=== PATIENT | female | born 1940 | race Caucasian/White ===

== ENCOUNTER → 2017-08-10 | Outpatient (CLI) | payer MEDICARE, OTHER ==
[~2017-08-10] MED LIST: ATOR10; Advil200 M1; CENTRUM SILVER1 EAC2; CHOL10002 PO; Coq-1030 MG PO; DOCU100 PO; OXYACE5T PO; PROM25 PO; Percocet 5-3251 EACH PO; RALO60 PO
[2017-08-11 10:50] LABS: Candida species (DNA Probe) Negative (NEGATIVE); G. vaginalis (DNA Probe) Negative (NEGATIVE); T. vaginalis (DNA Probe) Negative (NEGATIVE)
== END | disposition home or self-care (01) ==
LOC: LAB 11:53
PROVIDERS: Physician Assistant
DX: N89.8 Other specified noninflammatory disorders of vagina (principal)
CPT/HCPCS: 87480; 87510; 87660

== ENCOUNTER → 2017-09-15 | Outpatient (CLI) | payer MEDICARE, OTHER ==
[2017-09-15 13:57] LABS: Source, Urine Catheter
[2017-09-15 16:21] LABS: Appearance, Urine Clear (Clear); Bilirubin, Urine Neg (Neg); Blood, Urine Neg (Neg); Color, Urine Yellow (P-Yellow); Glucose Qualitative, Urine Neg (Neg); Ketones, Urine Neg (Neg); Leukocyte Esterase, Urine Neg (Neg); Nitrite, Urine Neg (Neg); Protein, Urine Neg (Neg); Specific Gravity, Urine 1.025 (1.003-1.022); Urobilinogen, Urine NORM (Normal)
== END | disposition home or self-care (01) ==
LOC: OLS 13:49
PROVIDERS: Obstetrics & Gynecology Gynecology
DX: N89.8 Other specified noninflammatory disorders of vagina (principal); R31.21 Asymptomatic microscopic hematuria; Z87.448 Personal history of other diseases of urinary system
CPT/HCPCS: 81003; 87070; 87205

== ENCOUNTER → 2018-11-07 | Outpatient (CLI) | payer MEDICARE, OTHER ==
[2018-11-07 12:08] LABS: Source, Urine Catheter
[2018-11-07 12:44] LABS: Bilirubin, Urine Neg (Neg); Blood, Urine Neg (Neg); Glucose Qualitative, Urine Neg (Neg); Ketones, Urine Neg (Neg); Leukocyte Esterase, Urine Neg (Neg); Nitrite, Urine Neg (Neg); Protein, Urine Neg (Neg); Urobilinogen, Urine NORM (Normal)
[2018-11-07 12:48] LABS: Appearance, Urine Clear (Clear); Color, Urine Pale Yellow (P-Yellow)
== END | disposition home or self-care (01) ==
LOC: LAB 12:07 → LAB SHORT 12:07
PROVIDERS: Nurse Practitioner Women's Health
DX: R30.0 Dysuria (principal)
CPT/HCPCS: 81003

== ENCOUNTER → 2019-04-12 | Outpatient (CLI) | payer MEDICARE, OTHER ==
[2019-04-14 15:07] LABS: HPV 16 Negative (Negative); HPV 18 Negative (Negative); HPV OTHER HR TYPES Negative (Negative)
== END | disposition home or self-care (01) ==
LOC: LAB SHORT 13:47 → LAB 13:47
PROVIDERS: Obstetrics & Gynecology Gynecology
DX: Z91.89 Other specified personal risk factors, not elsewhere classified (principal)
CPT/HCPCS: 87624; G0123

== ENCOUNTER → 2019-11-11 | Outpatient (CLI) | payer MEDICARE, OTHER | END | disposition home or self-care (01) | LOC: LAB SHORT 08:17 → LAB 08:17 | DX: N39.0 Urinary tract infection, site not specified (principal) | CPT/HCPCS: 87086 ==

== ENCOUNTER → 2020-04-28 | Outpatient (CLI) | payer MEDICARE, OTHER | END | disposition home or self-care (01) | LOC: LAB 10:00 → LAB SHORT 10:00 | DX: R30.0 Dysuria (principal) | CPT/HCPCS: 87086 ==

== ENCOUNTER → 2020-11-21 | Outpatient (CLI) | payer MEDICARE, OTHER | END | disposition home or self-care (01) | LOC: LAB SHORT 12:41 → LAB 12:41 | DX: R30.0 Dysuria (principal) | CPT/HCPCS: 87086 ==

== ENCOUNTER → 2021-12-04 | Outpatient (CLI) | payer MEDICARE, OTHER | LOC: LAB SHORT 13:02 | DX: R30.0 Dysuria (principal) | CPT/HCPCS: 87086 ==

== ENCOUNTER → 2022-02-21 | Outpatient (CLI) | payer MEDICARE, OTHER ==
[2022-02-23 13:50] LABS: Stool Occult Bld Immuno 1 Negative (NEGATIVE)
== END ==
LOC: LAB 21:00 → LAB SHORT 21:00
PROVIDERS: Physician Assistant Medical
DX: K92.1 Melena (principal)
CPT/HCPCS: G0328

== ENCOUNTER → 2024-09-11 | Outpatient (CLI) | payer MEDICARE, OTHER | END | disposition home or self-care (01) | LOC: LAB SHORT 12:31 → LAB 12:31 | DX: N39.0 Urinary tract infection, site not specified (principal); R31.9 Hematuria, unspecified | CPT/HCPCS: 87077; 87086; 87186 ==

== ENCOUNTER → 2024-09-24 | Outpatient (CLI) | payer MEDICARE, OTHER | LOC: LAB SHORT 10:37 → LAB 10:37 | DX: N39.0 Urinary tract infection, site not specified (principal) | CPT/HCPCS: 87086 ==

== ENCOUNTER → 2024-11-27 | Outpatient (CLI) | payer MEDICARE, OTHER ==
[2024-11-27 20:00] LABS: Bacterial Vaginosis PCR Negative (NEGATIVE); Candida Group, PCR NOT DETECTED (NOT DETECT); Candida glabrata-krusei, PCR NOT DETECTED (NOT DETECT)
== END ==
LOC: LAB SHORT 17:04 → LAB 17:04
PROVIDERS: Nurse Practitioner
DX: R30.9 Painful micturition, unspecified (principal)
CPT/HCPCS: 81515